=== PATIENT | male | born 1995 | race American Indian/Alaskan Native ===

== ENCOUNTER 2017-10-12 16:55 | Emergency (ER) | payer SELFPAY ==
[2017-10-12 17:00] VITALS: BP 136/67
[2017-10-12] MEDS ORDERED: MOTRIN ONE ×2 (22:07→22:10)
[2017-10-12] MEDS ORDERED: LIDOCAINE VISCOUS 2% ONE (22:08)
[2017-10-12] MEDS ORDERED: MOTRIN PO ONE (22:11)
[2017-10-12] MEDS ORDERED: LIDOCAINE VISCOUS 2% PO ONE (22:14)
[2017-10-12] MEDS ORDERED: NACL 0.9% 1000 ML 1,000 ML IV ONE (23:10)
--- NOTE | 2017-10-12 23:15 | Emergency Department Report ---
ED ENT HPI - General Chief complaint: Sore Throat Stated complaint: SORE THROAT Time Seen by Provider: 10/12/17 23:00 Source: patient Mode of arrival: Ambulatory Limitations: No Limitations - History of Present Illness Initial comments: 22-year-old -[place] male comes in complaining of sore throat and headache. Patient reports this isn't gone on for the past 72 hours. 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 Patient reports that he is having trouble in swallowing, increased secretions in the mouth. Overall does not feel very well. Patient reports he has tried taking [id number] Cepacol complaint: sore throat, difficulty swallowing -: hour(s) (72) Location: throat Severity: severe Severity scale (0 -10): 9 Quality: stabbing, aching Consistency: constant Improves with: none Worsens with: swallowing Context- Ear: other (has been in the rain) Associated Symptoms: pain with swallowing, sore throat - Related Data Previous Rx's Medication Instructions Recorded Last Taken Type Cyclobenzaprine [Flexeril] 10 mg PO TID PRN #14 tablet 08/01/13 Unknown Rx Ibuprofen [Motrin] 800 mg PO Q8H PRN #20 tablet 08/01/13 Unknown Rx Clindamycin [Clindamycin CAP] 300 mg PO Q8H #30 cap 10/13/17 Unknown Rx Ibuprofen [Motrin 800 MG tab] 800 mg PO Q8HR PRN #30 tablet 10/13/17 Unknown Rx Allergies Allergy/AdvReac Type Severity Reaction Status Date / Time amoxicillin [Amoxicillin] Allergy Swelling Verified 08/01/13 17:56 Penicillins Allergy Swelling Verified 08/01/13 17:56 ED Dental HPI - General Chief complaint: Sore Throat Stated complaint: SORE THROAT Time Seen by Provider: 10/12/17 23:00 Source: patient Mode of arrival: Ambulatory Limitations: No Limitations - Related Data Previous Rx's Medication Instructions Recorded Last Taken Type Cyclobenzaprine [Flexeril] 10 mg PO TID PRN #14 tablet 08/01/13 Unknown Rx Ibuprofen [Motrin] 800 mg PO Q8H PRN #20 tablet 08/01/13 Unknown Rx Clindamycin [Clindamycin CAP] 300 mg PO Q8H #30 cap 10/13/17 Unknown Rx Ibuprofen [Motrin 800 MG tab] 800 mg PO Q8HR PRN #30 tablet 10/13/17 Unknown Rx Allergies Allergy/AdvReac Type Severity Reaction Status Date / Time amoxicillin [Amoxicillin] Allergy Swelling Verified 08/01/13 17:56 Penicillins Allergy Swelling Verified 08/01/13 17:56 ED Review of Systems ROS: Stated complaint: SORE THROAT Other details as noted in HPI Constitutional: chills, fever ENT: throat pain Respiratory: denies: cough, shortness of breath, wheezing Cardiovascular: denies: chest pain, palpitations Neurological: headache, weakness ED Past Medical Hx - Past Medical History Hx Hypertension: Yes Hx Asthma: Yes - Social History Smoking Status: Never Smoker Substance Use Type: None - Medications Home Medications: Home Medications Medication Instructions Recorded Confirmed Last Taken Type Cyclobenzaprine [Flexeril] 10 mg PO TID PRN #14 tablet 08/01/13 Unknown Rx Ibuprofen [Motrin] 800 mg PO Q8H PRN #20 tablet 08/01/13 Unknown Rx Clindamycin [Clindamycin CAP] 300 mg PO Q8H #30 cap 10/13/17 Unknown Rx Ibuprofen [Motrin 800 MG tab] 800 mg PO Q8HR PRN #30 tablet 10/13/17 Unknown Rx ED Physical Exam - General Limitations: No Limitations General appearance: alert, in no apparent distress - Head Head exam: Present: atraumatic, normocephalic - ENT ENT exam: Present: mucous membranes moist - Expanded ENT Exam Expanded Throat exam: Positive: tonsillar erythema, tonsillomegaly - Neck Neck exam: Present: tenderness, lymphadenopathy - Respiratory Respiratory exam: Present: normal lung sounds bilaterally. Absent: respiratory distress - Cardiovascular Cardiovascular Exam: Present: normal rhythm, tachycardia. Absent: systolic murmur, diastolic murmur, rubs, gallop - GI/Abdominal GI/Abdominal exam: Present: soft, normal bowel sounds ED Course Vital Signs 10/12/17 10/12/17 10/12/17 16:57 22:17 22:22 Temperature 100.8 F H 101.3 F H Pulse Rate 96 H 94 H Respiratory 18 18 18 Rate Blood Pressure 136/67 O2 Sat by Pulse 98 98 Oximetry 10/13/17 00:12 Temperature 99.2 F Pulse Rate Respiratory Rate Blood Pressure O2 Sat by Pulse Oximetry ED Medical Decision Making - Lab Data Result diagrams: 10/12/17 23:20 10/13/17 00:12 - Medical Decision Making Patient has been evaluated by this provider fast track. CBCs BMP CT soft tissue which shows patient has a left tonsillar consistent with tonsillitis. Critical care attestation.: If time is entered above; I have spent that time in minutes in the direct care of this critically ill patient, excluding procedure time. ED Disposition Clinical Impression: Tonsillitis Disposition: DC-01 TO HOME OR SELFCARE Is pt being admited?: No Does the pt Need Aspirin: No Condition: Stable Instructions: Tonsillitis (ED) Additional Instructions: These complete antibiotics as prescribed. Tylenol or Motrin for pain control and fever. Follow-up with her primary care provider symptoms persist or gets worse. Prescriptions: Clindamycin [Clindamycin CAP] 300 mg PO Q8H #30 cap Ibuprofen [Motrin 800 MG tab] 800 mg PO Q8HR PRN #30 tablet PRN Reason: Pain , Severe (7-10) Referrals: PRIMARY CAREMD [Primary Care Provider] - 3-5 Days SHERRON GARCIA MD [Staff Physician] - 3-5 Days Forms: Work/School Release Form(ED)
[2017-10-12 23:42] LABS: Basophils % (Auto) 0.4 % (0.0-1.8); Eosinophils % (Auto) 0.4 % (0.0-4.3); Hematocrit 38.1 % (35.5-45.6); Hemoglobin 13.5 gm/dl (11.8-15.2); Lymphocytes # (Auto) 1.8 K/mm3 (1.2-5.4); Lymphocytes % (Auto) 18.2 % (13.4-35.0); Mean Corpuscular HGB Conc 35 % (32-34); Mean Corpuscular Hemoglobin 31 pg (28-32); Mean Corpuscular Volume 88 fl (84-94); Monocytes % (Auto) 10.2 % (0.0-7.3); Platelet Count 279 K/mm3 (140-440); Red Blood Count 4.35 M/mm3 (3.65-5.03); Red Cell Distribution Width 12.7 % (13.2-15.2)
[2017-10-12 23:51] LABS: BUN/Creatinine Ratio 12; Blood Urea Nitrogen 11 mg/dL (9-20); Calcium 9.1 mg/dL (8.4-10.2); Hemolysis Index 358
--- NOTE | 2017-10-13 00:30 | Cat Scan Report ---
FINAL REPORT PROCEDURE: CT NECK W CON TECHNIQUE: Computerized axial tomography of the soft tissue neck was performed following the IV injection of iodinated nonionic contrast. HISTORY: concern for abscess, sore throat COMPARISON: No prior studies are available for comparison. FINDINGS: Skull and scalp: Normal. Paranasal sinuses: Normal. Nasopharynx: Normal . Oral cavity: There is slight soft tissue swelling in the left tonsillar region. No formed fluid collection or abscess.. Epiglottis/vallecula: Normal . Larynx/pyriform sinuses: Normal . Thyroid gland: Normal . Lymph nodes: None enlarged . Salivary glands: Normal . Upper thorax: Normal . IMPRESSION: Slight soft tissue swelling the left tonsillar region consistent with tonsillitis. No fluid collection or formed abscess.
[2017-10-13 00:34] LABS: BUN/Creatinine Ratio 11; Blood Urea Nitrogen 11 mg/dL (9-20); Calcium 8.6 mg/dL (8.4-10.2); Hemolysis Index 89
== END 2017-10-13 01:43 | disposition home or self-care (01) ==
LOC: ED 16:55
DX: J03.90 Acute tonsillitis, unspecified (principal); I10 Essential (primary) hypertension; J45.909 Unspecified asthma, uncomplicated; Z88.1 Allergy status to other antibiotic agents; Z88.0 Allergy status to penicillin
CPT/HCPCS: 36415; 70491; 80048; 85025; 87116; 87430; 99284; J7030; Q9967; 96360